=== PATIENT | female | born 1980 | race Caucasian/White ===

== ENCOUNTER 2021-02-23 08:06 | Emergency (ER) | payer OTHER ==
[~2021-02-23] VITALS: Ht 157.5 cm; Wt 95.3 kg
[2021-02-23] MEDS ORDERED: NAPROXEN500 MG PO (09:42)
[2021-02-23] MEDS ORDERED: HYDROCODON-ACE1 EAC2 PO (09:42)
== END 2021-02-23 10:30 | disposition home or self-care (01) ==
LOC: FER 08:06
DX: S02.2XXA Fracture of nasal bones, initial encounter for closed fracture (principal); S60.212A Contusion of left wrist, initial encounter; M25.561 Pain in right knee; V49.40XA Driver injured in collision with unspecified motor vehicles in traffic accident, initial encounter; Y92.410 Unspecified street and highway as the place of occurrence of the external cause
CPT/HCPCS: 70450; 70486; 73110; 73560